=== PATIENT | male | born 1950 | race Caucasian/White ===

== ENCOUNTER 2018-07-04 10:24 | Day surgery (SDC) | payer BC ==
[2018-07-03 17:00] VITALS: BMI 25.7
--- NOTE | 2018-07-04 10:11 | HP ---
Satellite H - Chief Complaint Chief Complaint: right shoulder pain - Past Medical History Allergies/Adverse Reactions: Allergies Allergy/AdvReac Type Severity Reaction Status Date / Time aspirin Allergy Verified 12/16/17 19:11 - Current Medications Current Medications: Home Medications Medication Instructions Recorded Amlodipine Besylate 10 mg PO DAILY 07/03/18 Lisinopril [Prinivil -] 40 mg PO DAILY 07/03/18 Tamsulosin HCl [Flomax] 0.4 mg PO DAILY 07/03/18 Oxycodone HCl/Acetaminophen 1 - 2 tab PO Q6H #30 tab MDD 6 07/04/18 [Percocet 5-325 mg Tablet] Satellite Physical Exam - Physical Examination General Appearance: Well Nourished, Well Developed, Alert & Oriented x3 ENT: Clear Lung: Normal air movement Heart: Regular rate & rhythm Extremities: Other (right shoulder- + ttp, decr rom, + empty can,+neer,+bailey, nvi MRI + rct) Neurological: Intact, Alert, Oriented Satellite Impression/Plan - Impression/Plan Impression: right shoulder rct Operative Procedure: right shoulder arthroscopy with RCR, SAD Date to be Performed: 07/04/18
[2018-07-04 11:05] LABS: HEMATOCRIT 42.2 % (35.4-49); HEMOGLOBIN 13.8 GM/dL (11.7-16.9); MCHC 32.7 g/dl (32.0-35.9); MEAN CELL VOLUME 88.8 fl (80-96); MEAN PLT VOLUME 11.7 fl (7.5-11.1); PLATELET COUNT 86 K/MM3 (134-434); RBC 4.76 M/mm3 (4.00-5.60); RDW 13.6 % (11.9-15.9); WHITE BLOOD COUNT 3.4 K/mm3 (4.0-10.0)
[2018-07-04] MEDS ORDERED: ROPIVACAINE HCL 0.5% 30ML VIAL ONE (12:19)
[2018-07-04] MEDS ORDERED: DEXAMETHASONE SOD PHOSPHATE/PF 10 MG/ML SDV ONE (12:19)
[2018-07-04] MEDS ORDERED: MIDAZOLAM HCL 2 MG/2 ML SINGLE DOSE VIAL ONE ×2 (12:20)
[2018-07-04] MEDS ORDERED: SODIUM CHLORIDE 0.9% P/F 10 ML VIAL IJ ONE (14:10)
[2018-07-04] MEDS ORDERED: ceFAZolin SODIUM 1 GM VIAL ONE (14:10)
[2018-07-04] MEDS ORDERED: SUCCINYLCHOLINE CHLORIDE 200 MG/10 ML VIAL ONE (14:15)
[2018-07-04] MEDS ORDERED: ePHEDrine SULFATE 50 MG/1 ML AMPULE ONE (14:58)
[2018-07-04] MEDS ORDERED: ceFAZolin SODIUM 1 GM VIAL IVPB ONE (15:19)
[2018-07-04] MEDS ORDERED: DESFLURANE GAS 240 ML BOTTLE IH ONE (15:26)
--- NOTE | 2018-07-04 16:22 | OP ---
Operative Note - Note: Operative Date: 07/04/18 ([facility]) Pre-Operative Diagnosis: right shoulder rct Operation: right shoulder arthroscopy with RCR, SAD Implants: 2 arthrex swivelocks Post-Operative Diagnosis: Same as Pre-op Surgeon: Autsin Black Technical Consultant: Pablo Bettencourt Anesthesiologist/HORSE RACE STARTER: You Squires Anesthesia: General, Local Specimens Removed: shavings Estimated Blood Loss (mls): 25 Operative Report Dictated: Yes
[2018-07-04 20:27] VITALS: BP 121/75; PULSE 77; TEMP 97.8
--- NOTE | 2018-07-05 08:47 | OP ---
DATE OF OPERATION: 07/04/2018 PREOPERATIVE DIAGNOSIS: Right shoulder impingement syndrome and rotator cuff tear. POSTOPERATIVE DIAGNOSIS: Right shoulder impingement syndrome and rotator cuff tear. PROCEDURE: Right shoulder arthroscopy, subacromial decompression, distal clavicle excision, and arthroscopic rotator cuff repair. SURGEON: Leny Turner MD COTTON SAMPLER: ARABELLA Villalba ANESTHESIOLOGIST: Carmen Liang MD ANESTHESIA: Right interscalene block with LMA anesthesia. DRAINS: None. COMPLICATIONS: None. BLOOD LOSS: Minimal. BLOOD GIVEN: None. FLUID REPLACEMENT: PlasmaLyte, 700 mL. DESCRIPTION OF PROCEDURE: The patient is a 68-year-old male with a preoperative diagnosis of right shoulder impingement and a rotator cuff tear. After understanding the potential risks, complications, alternatives, benefits of surgery versus nonsurgical treatment, the patient elected to undergo this procedure. Patient was brought to the operating room, peripheral IV placed, and IV sedation given. Then, 2 g of IV Ancef were given. LMA anesthesia was induced. The patient was placed into the beach-chair position with ample padding throughout. The right upper extremity was prepped and draped in sterile fashion. The bony landmarks were marked out with a marking pen. The posterior portal was established. A diagnostic glenohumeral arthroscopy was performed. Immediately it was apparent that the patient had a crescent-shaped, full-thickness rotator cuff tear. There was no glenohumeral osteoarthritis, and overall, the glenoid looked good and the biceps tendon looked good and the labrum looked good. Our attention was next turned to the subacromial space. Patient had a tremendous amount of inflammatory bursitis. The lateral portal was established with a spinal needle under direct visualization, and a green cannula introduced into the subacromial space. A soft tissue bursectomy was performed with the ArthroCare Wand. After this extensive debridement, this revealed a large subacromial and moderate-sized distal subclavicular bony spur, both of which were taken down with a 5.5-mm oval pravin. He was then fine-tuned with the pravin in reverse and then a straight shaver. Once this was done and I was happy with the decompression, I put the arm through a full range of motion. There were no points of impingement. Additional bursectomy was performed revealing a crescent-shaped full-thickness relatively large anterior to posterior supraspinatus and top portion of the infraspinatus rotator cuff tear. The area was debrided with the shaver. Debris on the humeral head removed including a bony spur with the pravin. It was mildly decorticated. Additional lateral subdeltoid bursectomy was performed for visualization. Next, 6 FiberWires and FiberTape were placed into the rotator cuff, the 3 anterior sutures/6 tails were put through an Arthrex SwiveLock anchor and put down into the humeral head. The posterior 6 were put through a SwiveLock anchor, and then, in a crossing technique, I put this more anterior to the first screw. It all came down quite nicely. The rotator cuff was completely covering the humeral head. It moved as a unit under direct visualization. The area was copiously irrigated and washed out. The arthroscopy portals were closed with 3-0 nylon sutures. The area was then washed and dried, covered with Aquacel dressing. The patient was then placed into a shoulder immobilizer. Total operative time was about 1 hour. There were no complications during the case. The patient tolerated the procedure quite well and was brought to the ambulatory recovery room in stable condition. LENY TURNER M.D. [id number]
--- NOTE | 2018-07-08 08:49 | PATH ---
Surgical Pathology Report Patient Name: FAB SCALES [facility]. Rec. #: [id number] /Age/Gender: 1950 (Age: 68) / M Account: [id number] Location: [facility] Taken: 07/04/2018 Received: 07/05/2018 Reported: 07/08/2018 Physicians: Austin Black M.D. Specimen(s) Received RIGHT SHOULDER SHAVINGS Clinical History Right shoulder pain Final Diagnosis RIGHT SHOULDER SHAVINGS: FRAGMENTS OF FIBROCARTILAGINOUS TISSUE AND SYNOVIAL TISSUE WITH DEGENERATIVE CHANGE. Electronically Signed Lionel Kemp M.D. Gross Description Received in formalin, labeled "right shoulder shavings," is a 7.5 x 6.0 x 0.7 cm. aggregate of nevarez-yellow soft tissue fragments. A inside sales account representative portion is submitted in one cassette. /07/05/201807/05/2018
== END 2018-07-04 19:20 | disposition home or self-care (01) ==
LOC: JASU-SURG 10:24
PROVIDERS: ATTEND Orthopaedic Surgery
PROC: 0PB94ZZ Excision of Right Clavicle, Percutaneous Endoscopic Approach (ICD-10-PCS; 2018-07-04)
PROC: 0LQ14ZZ Repair Right Shoulder Tendon, Percutaneous Endoscopic Approach (ICD-10-PCS; principal; 2018-07-04 12:30)
PROC: 0RNJ4ZZ Release Right Shoulder Joint, Percutaneous Endoscopic Approach (ICD-10-PCS; 2018-07-04 12:30)
DX: M75.101 Unspecified rotator cuff tear or rupture of right shoulder, not specified as traumatic (principal); M75.41 Impingement syndrome of right shoulder
CPT/HCPCS: 36415; 85027; 86850; 86900; 86901; 88304-TC; 94760